=== PATIENT | male | born 1960 | race Caucasian/White ===

== ENCOUNTER 2018-01-07 10:32 | Emergency (ER) | payer SELFPAY ==
[~2018-01-07] VITALS: Ht 180.3 cm; Wt 115.0 kg
[2018-01-07 10:42] VITALS: BP 179/93; PULSE 78; RESP 18; TEMP 98.1; O2SAT 98
[2018-01-07] MEDS ORDERED: LIDOCAINE 2%/EPINEPHrine PF 1:200,000 20ML SDV INFIL ONE (11:15)
[2018-01-07] MEDS ORDERED: BACT800T5 PO (11:48)
--- NOTE | 2018-01-07 11:48 | PD ---
HPI . Abscess Chief Complaint: Lump, Cyst, Hernia Time Seen by Provider: 10:58 Travel History International Travel<30 days: No Contact w/Intl Traveler<30days: No Traveled to known affect area: No History of Present Illness HPI This patient presents with a chief complaint of an abscess on his right posterior neck. Onset was a week ago. It is getting progressively worse. He currently rates the pain at 5/10. It has drained some foul smelling purulent discharge. He has not had any systemic symptoms such as fever. He states that he has had the cyst on his neck for many many years and it has become infected before. PFSH Past Medical History Medical History: Denies Significant Hx Tetanus Vaccination: Unknown Influenza Vaccination: No Past Surgical History Tonsillectomy: Yes Other Surgery: Yes (cyst removal) Social History Alcohol Use: No (quit seven years ago) Tobacco Use: No Substance Use: No Allergies-Medications (Allergen,Severity, Reaction): Coded Allergies: No Known Allergies (Unverified , 01/07/18) Reported Meds & Prescriptions Reported Meds & Active Scripts Active No Active Prescriptions or Reported Medications Review of Systems Except as stated in HPI: all other systems reviewed are Neg General / Constitutional: No: Fever, Chills Gastrointestinal: No: Nausea, Vomiting Skin: Positive Lesions Physical Exam Narrative GENERAL: Awake and alert and in no acute distress. SKIN: Warm and dry. Area of induration and central fluctuance on the right posterior neck. It is 3 cm in diameter. The overlying skin is red and hot. HEAD: Normocephalic/atraumatic. EYES: Pupils are equal. Extraocular movements are intact. NECK: Normal range of motion. RESPIRATORY: Nonlabored respirations. MUSCULOSKELETAL: Atraumatic. NEUROLOGICAL: Nonfocal. PSYCHIATRIC: Appropriate mood and affect. Data Data Last Documented VS Vital Signs Date Time Temp Pulse Resp B/P (MAP) Pulse Ox O2 Delivery O2 Flow Rate FiO2 01/07/18 10:42 98.1 78 18 179/93 (121) 98 Orders Orders Lidoca-Epi Pf 2%-1:200,000 Inj (Xylocain (01/07/18 11:15) MDM Medical Decision Making Medical Screen Exam Complete: Yes Emergency Medical Condition: Yes Differential Diagnosis My differential diagnosis closed but is not limited to abscess, cyst, lipoma Narrative Course This patient presents with an abscess on his right posterior neck. The abscess has been drained. He will be discharged on Bactrim. Will be instructed to return here in 2 days for recheck. He needs elective referral to a surgeon for removal of the cyst. Procedures Procedure Narrative INCISION AND DRAINAGE OF ABSCESS: The area was prepped and was sterilely draped. A subcutaneous wheal of 1 % Xylocaine with epi with a total number 6 mL was used to anesthetize the area properly. A number 11 scalpel was used to make a 1.5 -cm incision across the area of the abscess. The abscess was drained and complex loculations were broken down. Half inch plain packing was placed in the wound. Sterile dressing applied. Patient advised to have packing removed in two days. The abscess was in a cyst. I attempted to dissect the cyst from the wound but the patient became vasovagal and the procedure had to be aborted. I will advise him to follow-up with the surgeon as an outpatient to have the cyst electively removed. Diagnosis Primary Impression: Infected sebaceous cyst Referrals: Mohsen Saenz MD Additional Instructions: Be careful not to accidentally pull out the packing. I would suggest covering the area with a large Band-Aid while showering and then replace the Band-Aid after your shower. Med/Other Pt SpecificInfo: Prescription(s) given Scripts Sulfamethoxazole-Trimethoprim (Bactrim DS) 800-160 Mg Tab 1 TAB PO BID for Infection, #20 TAB 0 Refills Prov: Ananya Wang MD 01/07/18 Disposition: 01 DISCHARGE HOME Condition: Stable Ananya Wang MD Jan 07, 2018 11:48
== END 2018-01-07 12:05 | disposition home or self-care (01) ==
LOC: NEPD 10:32
DX: L72.3 Sebaceous cyst (principal); L02.11 Cutaneous abscess of neck
CPT/HCPCS: 10061

== ENCOUNTER 2018-01-09 07:29 | Emergency (ER) | payer SELFPAY ==
[~2018-01-09] VITALS: Ht 180.3 cm; Wt 115.0 kg
[~2018-01-09 07:29] MED LIST: BACT800T5 PO
[2018-01-09 07:38] VITALS: BP 162/83; PULSE 78; RESP 17; TEMP 97.6; O2SAT 97
--- NOTE | 2018-01-09 07:53 | PD ---
HPI Chief Complaint: Wound/Suture/Staple Re-Check Time Seen by Provider: 07:41 Travel History International Travel<30 days: No Contact w/Intl Traveler<30days: No Traveled to known affect area: No History of Present Illness HPI 57-year-old male presents emergency department for recheck of a recent I&D of a sebaceous cyst/abscess to the right posterior neck 2 days prior to this visit. Patient is currently taking Bactrim and complains of minimal pain. He has been changing the dressing with ongoing drainage noted. He has no other acute complaints. No known drug allergies. [facility] Past Medical History Medical History: Denies Significant Hx Tetanus Vaccination: Unknown Influenza Vaccination: No Past Surgical History Tonsillectomy: Yes Other Surgery: Yes (cyst removal) Social History Alcohol Use: No (quit seven years ago) Tobacco Use: No Substance Use: No Allergies-Medications (Allergen,Severity, Reaction): Coded Allergies: No Known Allergies (Unverified , 01/09/18) Reported Meds & Prescriptions Reported Meds & Active Scripts Active Bactrim DS (Sulfamethoxazole-Trimethoprim) 800-160 Mg Tab 1 Tab PO BID Review of Systems Except as stated in HPI: all other systems reviewed are Neg General / Constitutional: No: Fever Eyes: No: Visual changes HENT: No: Headaches Cardiovascular: No: Chest Pain or Discomfort Respiratory: No: Shortness of Breath Gastrointestinal: No: Abdominal Pain Genitourinary: No: Dysuria Musculoskeletal: No: Pain Skin: Positive Lesions (See history of present illness per), No Rash Neurologic: No: Weakness Psychiatric: No: Depression Endocrine: No: Polydipsia Hematologic/Lymphatic: No: Easy Bruising Physical Exam Narrative GENERAL: Patient is in no acute distress per SKIN: Warm and dry. Normal color. Normal turgor. Incision site appears to be healing well without significant erythema or induration. There is expressible venous drainage. HEAD: Atraumatic. Normocephalic. EYES: Pupils equal and round. No scleral icterus. No injection or drainage. ENT: No nasal bleeding or discharge. Mucous membranes pink and moist. Pharynx is clear. Airways patent NECK: Trachea midline. Supple and nontender without lymphadenopathy. CARDIOVASCULAR: Regular rate and rhythm. RESPIRATORY: No accessory muscle use. MUSCULOSKELETAL: Extremities without clubbing, cyanosis, or edema. No obvious deformities. NEUROLOGICAL: Awake and alert. No obvious cranial nerve deficits. Motor grossly within normal limits. Five out of 5 muscle strength in the arms and legs. Normal speech. PSYCHIATRIC: Appropriate mood and affect; insight and judgment normal. Data Data Last Documented VS Vital Signs Date Time Temp Pulse Resp B/P (MAP) Pulse Ox O2 Delivery O2 Flow Rate FiO2 01/09/18 07:38 97.6 78 17 162/83 (109) 97 MDM Medical Decision Making Medical Screen Exam Complete: Yes Emergency Medical Condition: Yes Differential Diagnosis Sebaceous cyst. Abscess. I&D. Packing change. Wound check Narrative Course Packing is removed without difficulty. Repeat packing not felt warranted. Wash the area thoroughly twice a day with soap and water. Keep covered as discussed. Finish Bactrim as previously prescribed. Follow-up as needed. Diagnosis Primary Impression: Encounter for abscess packing removal Patient Instructions: General Instructions Additional Instructions: Repeat packing not felt warranted. Wash the area thoroughly twice a day with soap and water. Keep covered as discussed. Finish Bactrim as previously prescribed. Follow-up as needed. Med/Other Pt SpecificInfo: No Change to Meds, Wound Care Disposition: 01 DISCHARGE HOME Condition: Stable Americo Garcia Jan 09, 2018 07:53
== END 2018-01-09 08:06 | disposition home or self-care (01) ==
LOC: NEPD 07:29
DX: Z48.00 Encounter for change or removal of nonsurgical wound dressing (principal)
CPT/HCPCS: 99281